=== PATIENT | male | born 1945 | race Caucasian/White ===

== ENCOUNTER 2019-05-18 09:03 | Outpatient (CLI) | payer MEDICARE, SELFPAY ==
[2019-05-18 13:18] LABS: Hematocrit 41.9 % (42.0-52.0); Hemoglobin 13.8 g/dL (14.0-18.0); Mean Corpuscular HGB Conc 32.9 g/dl (32-36); Mean Corpuscular Hemoglobin 31.3 pg (26-34); Mean Platelet Volume 10.5 fl (7.4-10.4); Platelet Count Result 160 k/mm3 (150-375); Red Blood Count 4.41 M/mm3 (4.6-6.20); Red Cell Distribution Width 12.1 % (11.5-14.5); White Blood Count 5.3 K/mm3 (4.5-10.0)
[2019-05-18 13:38] LABS: Creatinine Urine 197.4 mg/dL
[2019-05-18 13:39] LABS: Alanine Aminotransferase 21 U/L (4-50); Albumin Level 4.3 g/dL (3.5-5.1); Alkaline Phosphatase 45 U/L (38-126); Aspartate Amino Transferase 31 U/L (17-59); Bilirubin,Total 1.1 mg/dL (0.2-1.3); Blood Urea Nitrogen 35 mg/dL (9-20); Calcium 9.3 mg/dL (8.4-10.2); Carbon Dioxide 23 mmol/L (22-30); Chloride 102 mmol/L (98-107); Cholesterol 156 mg/dL (0-200); Estimated Glomerular Filt Rate 42; Glucose 124 mg/dL (75-110); HDL Direct 40 mg/dL; Potassium 4.8 mmol/L (3.4-5.0); Sodium 140 mmol/L (137-145); Triglycerides 131 mg/dL (<150)
[2019-05-18 13:43] LABS: MALB Creatinine Ratio 10.3 mg/g (0-30); Microalbumin Urine Random 20.3 mg/L (0-16.7)
[2019-05-18 13:47] LABS: Hemoglobin A1C 6.2 % (<5.7)
[2019-05-18 13:50] LABS: Add Urine Microscopic? NO; Appearance Urine Clear (Clear); Bilirubin Urine Negative (Negative); Blood Urine Negative (Negative); Color Urine Yellow (Yellow); Glucose Urine UA Negative (Negative); Ketones Urine Negative (Negative); LDL Cholesterol Direct 88 mg/dL; Leukocyte Esterase Ur Negative LEU/UL (NEGATIVE); Nitrate Urine Negative (Negative); Protein Urine Negative (Negative); Specific Grav Ur 1.024 (1.001-1.035); Urobilinogen Urine Negative mg/dL (<2.0)
== END 2019-05-18 09:04 | disposition home or self-care (01) ==
PROVIDERS: PCP Family Medicine; Visit Provider Family Medicine
DX: I12.9 Hypertensive chronic kidney disease with stage 1 through stage 4 chronic kidney disease, or unspecified chronic kidney disease (principal); N18.3 Chronic kidney disease, stage 3 (moderate); E11.9 Type 2 diabetes mellitus without complications; E78.2 Mixed hyperlipidemia
CPT/HCPCS: 36415; 80053; 80061; 81003; 82043; 83036; 84443; 85027

== ENCOUNTER 2019-05-29 07:50 | Outpatient (CLI) | payer MEDICARE, SELFPAY ==
--- NOTE | ~2019-05-29 | US_ITS ---
EXAMINATION: US aorta DATE: 05/29/2019 08:42 INDICATION: Encounter for screening for cardiovascular disorders. TECHNIQUE: Grayscale, color Doppler, and pulsed Doppler images of the aorta and common iliac arteries were obtained. COMPARISON: CT abdomen and pelvis 02/26/2015 FINDINGS: The aorta is normal in caliber and demonstrates atherosclerosis. The right common iliac artery is nor mal in caliber. The left common iliac artery is normal in caliber. IMPRESSION: 1. Aortic atherosclerosis. No aneurysm. Reviewed, dictated and finalized at location A. CHER
== END 2019-05-29 07:51 | disposition home or self-care (01) ==
LOC: ANHIMG 07:51
PROVIDERS: PCP Family Medicine; Visit Provider Family Medicine
DX: Z13.6 Encounter for screening for cardiovascular disorders (principal); I70.0 Atherosclerosis of aorta
CPT/HCPCS: 76775

== ENCOUNTER → 2019-12-08 09:35 | Outpatient (CLI) | payer MEDICARE, SELFPAY ==
--- NOTE | ~2019-12-08 | CT_ITS ---
EXAMINATION: CT sinus wo con DATE: 12/08/2019 09:50 INDICATION: Chronic sinusitis TECHNIQUE: Computed tomography (CT) of the paranasal sinuses was performed without intravenous contra st. The dose-length product (DLP) was 293.28 mGy-cm. Iterative reconstruction was used. COMPARISON: None FINDINGS: The right frontal sinus is not pneumatized in the left frontal sinus is hypoplastic. There is otherwise normal development and pneumatization of the paranasal sinuses. There is mild mucosal th ickening of th maxillary sinuses. Also seen is a 6 mm polyp or mucous retention cysts involving the l ateral wall of the left maxillary sinus. The nasal septum. There are surgical changes in the medial w all of the right maxillary sinus. The frontal, sphenoid, ethmoid sinuses are clear. The bilateral ost iomeatal complexes are patent. Visualized soft tissues are unremarkable. IMPRESSION: 1. Mild mucosal thickening of the maxillary sinuses and a 6 mm polyp or mucous retention cyst of the left maxillary sinus. Reviewed, dictated and finalized at location A.
== END ==
PROVIDERS: PCP Family Medicine; Visit Provider Otolaryngology
DX: J32.9 Chronic sinusitis, unspecified (principal)
CPT/HCPCS: 70486

== ENCOUNTER 2020-01-02 00:55 | Outpatient (CLI) | payer MEDICARE, SELFPAY ==
[2020-01-02 17:48] LABS: SARS-CoV-2 RNA PCR Negative
== END 2020-01-02 00:56 | disposition home or self-care (01) ==
LOC: ANHCOVIDDT 00:57
PROVIDERS: PCP Family Medicine; Visit Provider Internal Medicine Gastroenterology
DX: Z01.812 Encounter for preprocedural laboratory examination (principal); Z20.828 Contact with and (suspected) exposure to other viral communicable diseases
CPT/HCPCS: 87635; C9803; U0003

== ENCOUNTER 2020-01-05 02:22 | Day surgery (SDC) | payer MEDICARE, SELFPAY ==
[2020-01-01 10:58] VITALS: BMI 29.2
[2020-01-05 06:20] VITALS: BP 125/75; PULSE 68; RESP 16; TEMP 36.3; O2SAT 98; BMI 29.7
[2020-01-05] MEDS: LACTATED RINGERS 1,000 ML 150 ML IV CONT (06:43)
[2020-01-05 06:47] LABS: Glucose Point of Care 134 (65-105)
--- NOTE | 2020-01-05 07:06 | WPDANESEPPF ---
Anes - Initial Pre Proc Eval Procedure: Operation Date: 01/05/20 07:30 Proposed Procedures p Esophagogastroduodenoscopy - Jesus Jones MD Date/Time: 01/05/20 07:06 Surgeon: Jesus Jones MD Pre Op Diagnosis: Dysphagia, GERD Patient Data Age: 74 Gender: M Height: 6 ft Weight: 99.5 kg Last Vital Signs Temp 97.4 F L 01/05/20 06:20 Pulse 68 01/05/20 06:20 Resp 16 01/05/20 06:20 BP 125/75 01/05/20 06:20 Pulse Ox 98 01/05/20 06:20 Allergies Allergy/AdvReac Type Severity Reaction Status Date / Time No Known Allergies Allergy Verified 01/05/20 06:19 Home Medications Medication Instructions Recorded Confirmed Type olmesartan 20 mg tablet 20 mg PO DAILY #90 tablet 05/25/19 01/01/20 Rx rosuvastatin 5 mg tablet 5 mg PO DAILY #90 tablet 05/25/19 01/01/20 Rx omeprazole 40 mg capsule,delayed 40 mg PO DAILY #90 cap 11/24/19 01/01/20 Rx release blood sugar diagnostic #100 each 12/15/19 Rx lancets 33 gauge #100 each 12/15/19 Rx ipratropium bromide 2 spray INTRANASAL BID 01/01/20 01/01/20 History Laboratory Tests 01/05/20 06:41 POC Capillary Glucose 134 mg/dl H mg/dl (65-105) Patient hx anesthesia problems: none Family hx anesthesia problems: none PMFSH Past Medical History Medical History (Updated 01/05/20 @ 07:06 by Michael Restrepo MD) Diabetes mellitus with kidney complication GERD (gastroesophageal reflux disease) HLD (hyperlipidemia) Hypertension Surgical History Surgical History History of decompression of ulnar nerve History of hemorrhoidectomy History of nasal septoplasty History of shoulder replacement right Status post carpal tunnel release Social History Social History Smoking packs per day: 1 Smoking cigarettes per day: 20.0 Years smoked: 22 Smoking pack-years: 22.00 Smoking status: Former smoker Tobacco type: cigarettes and cigars Second hand tobacco smoke exposure: No Smoking end date: 04/08/71 Alcohol intake: current Drinks per week: 7 Substance use: never Substance use type: does not use Living arrangements: with family Gender identity (if verbalized by the patient): Male Sexual Orientation (if Verbalized by the Patient): Straight or Heterosexual Spiritual care concerns: No Anes - Eval Final PreProcedure Day of Procedure 01/05/20 07:06 Patient weight: overweight Heart: regular rate and rhythm Lungs: clear to auscultation Airway: Mallampati scale class II Neurological: alert and oriented Last oral intake: >/= 8 hours ASA classification: III Emergent: no Anesthetic plan: proceed Anesthesia type and monitoring: general GIVS and standard monitoring Informed Consent: The patient's anesthetic plan and its attendant risks and benefits were discussed with the patient/family/POA. Questions were solicited and answers provided to the satisfaction of the patient/family/POA.
[2020-01-05] MEDS: BENZOCAINE (*SP) 60 ML SPRAY CAN (HURRICAINE) 1 SPRAY MUCOUS MEM (07:28)
--- NOTE | 2020-01-05 07:35 | WPDGICN ---
Assessment and Plan Additional Plan Patient has chronic GE reflux disease. Plan is for EGD to assess more thoroughly. Recent exacerbation of symptoms currently slowly improving. Plan is for long-term PPI therapy further recommendations may be given after EGD. GI Consult Note Consult date/time: 01/05/20 07:35 HPI: [place] Jr. is a 74 year old male seen in evaluation at the request of Dr Dickens.Patient has a history of acid reflux for many years. He presents today for evaluation by EGD. He recently has had difficulty swallowing some fullness in his throat. This is improved on taking proton pump inhibitor but also upon taking an inhaler. his last EGD before today was more than 10 years ago. Family history is noncontributory. Patient denies any weight loss or bleeding. Patient has a distant history of an hyperplastic colon polyp 5 years ago. Surveillance colonoscopy at 10 year intervals has been suggested Review of Systems Review of Systems: All systems reviewed & are unremarkable except as noted in HPI and below PMFSH Past Medical History Medical History Diabetes mellitus with kidney complication GERD (gastroesophageal reflux disease) HLD (hyperlipidemia) Hypertension Surgical History Surgical History History of decompression of ulnar nerve History of hemorrhoidectomy History of nasal septoplasty History of shoulder replacement right Status post carpal tunnel release Family History Family History Father Family history of cardiovascular disease Sibling Family history of cardiovascular disease Mother Family history of malignant neoplasm Social History Social History Smoking packs per day: 1 Smoking cigarettes per day: 20.0 Years smoked: 22 Smoking pack-years: 22.00 Smoking status: Former smoker Tobacco type: cigarettes and cigars Second hand tobacco smoke exposure: No Smoking end date: 04/08/71 Alcohol intake: current Drinks per week: 7 Substance use: never Substance use type: does not use Living arrangements: with family Gender identity (if verbalized by the patient): Male Sexual Orientation (if Verbalized by the Patient): Straight or Heterosexual Spiritual care concerns: No Meds Home Medications and Allergies Home Medications Medication Instructions Recorded Confirmed Type olmesartan 20 mg tablet 20 mg PO DAILY #90 tablet 02/17/20 09/25/20 Rx rosuvastatin 5 mg tablet 5 mg PO DAILY #90 tablet 05/25/19 01/01/20 Rx omeprazole 40 mg capsule,delayed 40 mg PO DAILY #90 cap 11/24/19 01/01/20 Rx release blood sugar diagnostic #100 each 12/15/19 Rx lancets 33 gauge #100 each 12/15/19 Rx ipratropium bromide 2 spray INTRANASAL BID 01/01/20 01/01/20 History Allergies Allergy/AdvReac Type Severity Reaction Status Date / Time No Known Allergies Allergy Verified 01/05/20 06:19 Vital Signs Vital Signs - 24 hr 01/05/20 06:20 Temperature 97.4 F L Pulse Rate 68 Respiratory Rate 16 Blood Pressure 125/75 Pulse Oximetry 98 Exam Narrative: Exam Narrative: Physical exam reveals patient to be alert. Vital signs stable. HEENT exam unremarkable. Patient is anicteric. Lungs are clear to auscultation and percussion. Heart is without murmur or extra sounds. Abdominal exam bowel sounds are present soft nontender with no organomegaly.
[2020-01-05 07:37] VITALS: BP 109/68; PULSE 66; RESP 17; O2SAT 95
[2020-01-05 07:47] VITALS: BP 108/67; PULSE 64; RESP 16; O2SAT 94
[2020-01-05 07:57] VITALS: BP 110/63; PULSE 66; RESP 19; O2SAT 95
== END 2020-01-05 08:10 | disposition home or self-care (01) ==
PROVIDERS: PCP Family Medicine; Visit Provider Internal Medicine Gastroenterology
PROC: 0DJ08ZZ Inspection of Upper Intestinal Tract, Via Natural or Artificial Opening Endoscopic (ICD-10-PCS; CPT 43235; principal; 2020-01-05 07:30)
DX: K22.70 Barrett's esophagus without dysplasia (principal); K21.9 Gastro-esophageal reflux disease without esophagitis; Z86.010 Personal history of colon polyps; E11.29 Type 2 diabetes mellitus with other diabetic kidney complication; E78.5 Hyperlipidemia, unspecified; I10 Essential (primary) hypertension; Z87.891 Personal history of nicotine dependence
CPT/HCPCS: 43239; 88305; 88313; J2704; J7120

== ENCOUNTER → 2021-01-30 14:01 | Outpatient (CLI) | payer MEDICARE, SELFPAY ==
--- NOTE | ~2021-01-30 | XR_ITS ---
EXAMINATION: XR lumbar spine 2-3V DATE: 01/30/2021 14:33 INDICATION: Low back pain TECHNIQUE: Anteroposterior and lateral views of the lumbar spine, and cone-down lateral view of the l umbosacral junction were obtained. COMPARISON: CT, 02/26/2015 FINDINGS: There are 27 degrees of lumbar levoscoliosis. Fracture. There are 2 mm of retrolisthesis of L2 on L3 and 2 mm of anterolisthesis of L4 on L5. The vertebral body heights are maintained. There i s severe loss of intervertebral disc space height at L2-3 and moderate loss of disc space height at L 1-2, L3-4, and L5-S1. 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 The bowel gas p attern is normal. IMPRESSION: 1. Severe lumbar spondylosis at L2-3 and moderate lumbar spondylosis elsewhere without acute osseous abnormality. Reviewed, dictated and finalized at location A.
== END ==
PROVIDERS: PCP Family Medicine; Visit Provider Family Medicine
DX: M47.896 Other spondylosis, lumbar region (principal)
CPT/HCPCS: 72100

== ENCOUNTER → 2021-05-30 15:45 | Outpatient (CLI) | payer MEDICARE, SELFPAY ==
--- NOTE | ~2021-05-30 | CT_ITS ---
EXAMINATION: CT sinus wo con DATE: 05/30/2021 15:59 INDICATION: Postnasal drip TECHNIQUE: Computed tomography (CT) of the paranasal sinuses was performed without intravenous contra st. The dose-length product was 300.36 mGy-cm. Automated exposure control and iterative reconstructio n technique were employed. COMPARISON: CT dated 12/08/2019 FINDINGS: There is mild mucosal thickening of the maxillary, ethmoid sinuses. Mastoids are pneumatize d. Mastoids are pneumatized. Leftward nasal septal deviation. Ostiomeatal units are patent. IMPRESSION: 1. Mild sinus disease. Reviewed, dictated and finalized at location B. KER OUT IMPRESSION: 1. Mild sinus disease.
== END ==
PROVIDERS: Visit Provider Otolaryngology
DX: J32.9 Chronic sinusitis, unspecified (principal); J34.2 Deviated nasal septum; R09.82 Postnasal drip; R44.8 Other symptoms and signs involving general sensations and perceptions
CPT/HCPCS: 70486

== ENCOUNTER 2021-09-15 13:06 | Outpatient (CLI) | payer MEDICARE, SELFPAY ==
--- NOTE | ~2021-09-15 | US_ITS ---
US soft tissue groin RT 09/15/2021 14:01 Indication: Right groin/inguinal pain which increases with exertion Procedure: High-resolution Limited ultrasound of the right groin Comparison: No prior studies for comparison. Findings: In the area of pain there is an oval hypoechoic mass measuring 11 x 5 x 6 mm with slightly irregular margins. There is a second 1 cm mass with echogenic hilum in the area of concern, consisten t with a lymph node. No suspicious fluid collections. No abnormal vascularity. No evidence for hernia . Impression: 1: 2 discrete masses in the area of clinical concern, likely reactive lymph nodes. Recommend follow-u p examination to assess for resolution as clinically indicated. Reviewed, dictated and finalized at location A. Impression: 1: 2 discrete masses in the area of clinical concern, likely reactive lymph nod es. Recommend follow-up examination to assess for resolution as clinically bernardo cated.
== END 2021-09-15 13:07 | disposition home or self-care (01) ==
PROVIDERS: PCP Family Medicine; Visit Provider Physician Assistant
DX: R10.31 Right lower quadrant pain (principal); S76.811A Strain of other specified muscles, fascia and tendons at thigh level, right thigh, initial encounter; X58.XXXA Exposure to other specified factors, initial encounter
CPT/HCPCS: 76882

== ENCOUNTER 2021-11-02 08:21 | Outpatient (CLI) | payer MEDICARE, SELFPAY ==
--- NOTE | 2021-11-02 13:09 | WPDPFTINT ---
PFT Procedure Performed PFT Procedure Performed Spirometry with Pre/Post Bronchodilator Plethysmography (Lung Vol) Diffusing Cap (DLCO) Flow Vol Loop PFT Interpretation This is a pulmonary function test with pre and post-bronchodilator spirometry, plethysmography and diffusing capacity. The test was performed and results interpreted in accordance with the 2019 and 2005 ATS/ERS Task Force guidelines respectively using the Global Lung Function Initiative-2012 reference equations. Patient demonstrated good effort and cooperation. Reproducibility criteria were met. The quality of the pre bronchodilator spirometry maneuver was Grade A and post bronchodilator spirometry maneuver was Grade A. Findings: Spirometry: The contour the inspiratory and expiratory flow tracing are normal. The pre bronchodilator FVC is 4.66 L, 109% predicted. The pre bronchodilator FEV1 is 3.39 L, 107% predicted. The pre bronchodilator FEV1: FVC ratio 73%. The post bronchodilator FVC is 4.62 L, representing 1% decrease. The post bronchodilator FEV1 is 3.55 L, representing a 5% increase. the post bronchodilator FEV1: FVC ratio 77%. Plethysmography: The total lung capacity is 7.32 L, 98% predicted. The functional residual capacity is 3.69 L, 91% predicted. The residual volume is 2.46 L, 91% predicted. Diffusing capacity: The diffusing capacity unadjusted for hemoglobin and carboxyhemoglobin is 16.6, 66% predicted. The diffusing capacity adjusted for alveolar volume is 2.90, 81% predicted. Impression: The spirometry is normal without evidence of an obstructive abnormality. There is no significant improvement after inhaling a single dose of albuterol. The lung volumes are normal. The diffusing capacity unadjusted for hemoglobin and carboxyhemoglobin is mildly decreased and normalizes when adjusted for alveolar volume. There are no prior studies for comparison
== END 2021-11-02 08:22 | disposition home or self-care (01) ==
LOC: ANHPFT 08:25
PROVIDERS: PCP Family Medicine; Visit Provider Internal Medicine Pulmonary Disease
DX: R06.00 Dyspnea, unspecified (principal)
CPT/HCPCS: 94060; 94726; 94729

== ENCOUNTER 2021-11-12 08:10 | Emergency (ER) | payer MEDICARE, SELFPAY ==
--- NOTE | ~2021-11-12 | XR_ITS ---
XR abdomen/kub 1V DATE: 11/12/2021 09:53 INDICATION: 4 mm distal right ureteral calculus TECHNIQUE: AP projection, 2 views COMPARISON: 11/12/2021 CT abdomen pelvis FINDINGS: There is a prominent amount of fecal material in the colon overlying the pelvic area which may obscure a very faintly calcified ureteral calculus. No obvious calcified ureteral calculus is det ected. The psoas shadows are intact. No visceromegaly is evident. No bowel obstruction. Rotatory levoscoliosis and multilevel degenerative disc disease of the lumbar spine. IMPRESSION: No definite radiographic evidence of the 4 mm distal right ureteral calculus noted on the current CT abdomen pelvis Reviewed, dictated and finalized at Location A. Reviewed, dictated and finalized at location A.
--- NOTE | ~2021-11-12 | CT_ITS ---
EXAMINATION: CT abdomen pelvis wo con DATE: 11/12/2021 09:07 INDICATION: Right flank pain. History kidney stones. TECHNIQUE: Computed tomography (CT) of the abdomen and pelvis was performed without intravenous contr ast. Automated exposure control and iterative reconstruction technique were employed. Exam dose: 282 .75 mGy-cm total exam DLP. COMPARISON: 02/26/2015 CT abdomen pelvis FINDINGS: 02/26/[address] abdomen pelvis Minimal discoid atelectasis or scarring at the anterior basilar left lower lobe. No infiltrate or con solidation at the lung bases. Normal heart size. No pericardial or pleural effusion. Small sliding hiatal hernia. The liver, gallbladder, bile ducts, pancreas, pancreatic duct, and adrenal glands are unremarkable. No renal mass lesion is evident. Subtle nonobstructing small upper pole right renal calculus. There is a 4 mm distal right ureteral calculus with mild right hydroureteronephrosis. Moderate thickening of the urinary bladder wall which may be due to underdistention. No severe prosta te enlargement is noted. There is atherosclerotic calcification of the abdominal aorta. No intraperitoneal or retroperitoneal or pelvic mass lesion or adenopathy or ascites. Numerous diverticula of the left colon, primarily sigmoid area; no CT evidence of diverticulitis. No bowel obstruction, bowel wall thickening, pneumatosis or intraperitoneal free air. Normal appendix Degenerative spurring of the lower thoracic spine. Dextroscoliosis of the lower thoracic and lumbar spine. Multilevel degenerative disc disease of lumbar spine, particularly severe at L2-3 and L5-S1, moderate ly severe L1-2 and L3-4. There is associated mild retrolisthesis at L2-3. There is prominent degenera tive change at the apophyseal joints with associated grade 1 anterolisthesis at L4-5. IMPRESSION: 4 mm distal right ureteral calculus with mild right hydroureteronephrosis Diverticulosis of left colon; no CT evidence of diverticulitis Normal appendix Reviewed, dictated and finalized at [facility]. Reviewed, dictated and finalized at location A. IMPRESSION: 4 mm distal right ureteral calculus with mild right hydroureterone phrosis Diverticulosis of left colon; no CT evidence of diverticulitis Normal appendix
[2021-11-12 08:16] VITALS: BP 135/68; PULSE 74; RESP 16; TEMP 36.3; O2SAT 99
[2021-11-12 08:19] VITALS: BP 145/84; PULSE 64; RESP 16; O2SAT 94
[2021-11-12] MEDS: HYDROmorphone HCL INJ (*CRX) 1 MG/ML SYR 0.5 MG IV PUSH (08:42)
[2021-11-12] MEDS: ONDANSETRON INJ 4 MG/2 ML VIAL IV PUSH (08:42)
[2021-11-12 08:45] LABS: Basophils Absolute Auto 0.1 K/mm3 (0.0-0.1); Basophils Percent Auto 0.8 % (0.2-1.2); Eosinophils Absolute Auto 0.3 K/mm3 (0-0.3); Eosinophils Percent Auto 4.4 % (0-4.4); Hematocrit 38.9 % (42.0-52.0); Hemoglobin 12.8 g/dL (14.0-18.0); Immature Granulocyte Absolute 0.03 K/mm3 (0.00-0.031); Immature Granulocyte Percent A 0.4 % (0-0.5); Lymphocytes Absolute Auto 2.48 K/mm3 (0.9-3.2); Lymphocytes Percent Auto 33.3 % (18.3-44.2); Mean Corpuscular HGB Conc 32.9 g/dl (32-36); Mean Corpuscular Hemoglobin 30.9 pg (26-34); Monocytes Absolute Auto 0.8 K/mm3 (0.1-0.6); Monocytes Percent Auto 10.7 % (2.6-8.5); Neutrophils Absolute Auto 3.8 K/mm3 (1.3-6.7); Neutrophils Percent Auto 50.4 % (45.5-73.1); Platelet Count Result 166 k/mm3 (150-375); Red Blood Count 4.14 M/mm3 (4.6-6.20); Red Cell Distribution Width 12.6 % (11.5-14.5); White Blood Count 7.5 K/mm3 (4.5-10.0)
--- NOTE | 2021-11-12 08:56 | ED.GENADULT ---
HPI - General Adult General Chief complaint: Back Pain/Injury Stated complaint: back pain Time Seen by Provider: 11/12/21 08:27 Source: patient Mode of arrival: ambulatory Limitations: no limitations History of Present Illness HPI narrative: Patient is a 76 y/o male who presents to the ED with c/o R flank pain. Patient reports he developed pain around 8:30 AM this morning. He states pain came on suddenly and was severe. Pain does not radiate. History of kidney stones and states pain feels similar. Also reports cold sweats, nausea, difficulty urinating. He did urinate once this morning prior to when the pain began but it was a small amount. Denies any hematuria. Denies vomiting, fever, abdominal pain. Related Data Allergies Allergy/AdvReac Type Severity Reaction Status Date / Time No Known Allergies Allergy Verified 10/04/21 12:53 Review of Systems Review of Systems: CONSTITUTIONAL: Reports cold sweats. Denies fever. CARDIOVASCULAR: Denies chest pain. RESPIRATORY: Denies dyspnea. GASTROINTESTINAL: Reports nausea. Denies abdominal pain, vomiting, or diarrhea. GENITOURINARY: Reports difficulty urinating. Denies hematuria. MUSCULOSKELETAL: Reports R flank pain. All systems reviewed & are unremarkable except as noted in HPI and below PMFSH Past Medical History Medical History Diabetes mellitus with kidney complication GERD (gastroesophageal reflux disease) HLD (hyperlipidemia) Hypertension Surgical History Surgical History History of decompression of ulnar nerve History of hemorrhoidectomy History of nasal septoplasty History of shoulder replacement right Status post carpal tunnel release Family History Family History Father Family history of cardiovascular disease Sibling Family history of cardiovascular disease Mother Family history of malignant neoplasm Social History Social History Smoking packs per day: 1 Smoking cigarettes per day: 20.0 Years smoked: 22 Smoking pack-years: 22.00 Smoking status: Former smoker Tobacco type: cigarettes and cigars Second hand tobacco smoke exposure: Yes Smoking end date: 04/08/71 Alcohol intake: current Drinks per week: 4 Substance use: never Substance use type: does not use Gender identity (if verbalized by the patient): Male Sexual Orientation (if Verbalized by the Patient): Straight or Heterosexual Spiritual care concerns: No Exam Narrative: GENERAL: Well appearing, well-nourished, non-toxic, in no acute distress. HEAD: Normocephalic, atraumatic. NECK: Supple. No adenopathy, no masses. RESPIRATORY: Airway patent, respirations nonlabored. Clear to auscultation bilaterally, no rales, rhonchi, wheezing. CARDIOVASCULAR: Regular rate and rhythm without murmurs, rubs, or gallops. Peripheral pulses 2+ and equal bilaterally. ABDOMINAL: Soft, no appreciable tenderness to palpation, nondistended, no hepatosplenomegaly. Normoactive BS. No significant CVA tenderness to percussion. MUSCULOSKELETAL: Moves all extremities. Strength/ROM intact without gross deformities. Mild TTP to R lumbar region. SKIN: Warm, dry, normal color. No rashes. NEURO: A&O X3. Speech clear. Cranial nerves II-XII grossly intact. Steady gait. No ataxic movements. PSYCHIATRIC: Appropriate mood and affect. Normal interaction. Course Vital Signs Vital signs: Vital Signs Temperature 97.4 F L 11/12/21 08:16 Pulse Rate 74 11/12/21 08:16 Respiratory Rate 16 11/12/21 08:16 Blood Pressure 135/68 11/12/21 08:16 Pulse Oximetry 99 11/12/21 08:16 Oxygen Delivery Room Air 11/12/21 08:16 Temperature 97.4 F L 11/12/21 08:16 Pulse Rate 79 11/12/21 12:16 Respiratory Rate 18 11/12/21 12:16 Blood Pressure 125/74 11/12/21 12:16 Pulse Oximet
[2021-11-12 09:01] LABS: Alanine Aminotransferase 20 U/L (6-50); Albumin Level 4.2 g/dL (3.5-5.1); Alkaline Phosphatase 53 U/L (38-126); Anion Gap 10 mmol/L (8-16); Aspartate Amino Transferase 30 U/L (17-59); Bilirubin,Total 0.8 mg/dL (0.2-1.3); Blood Urea Nitrogen 37 mg/dL (9-20); Calcium 8.7 mg/dL (8.4-10.2); Carbon Dioxide 22 mmol/L (22-30); Chloride 107 mmol/L (98-107); Estimated CRCL calculation 36 ml/min; Estimated Glomerular Filt Rate 39; Glucose 177 mg/dL (65-110); Potassium 4.8 mmol/L (3.4-5.0); Sodium 139 mmol/L (137-145)
[2021-11-12] MEDS: SODIUM CHLORIDE 0.9% IV 1,000 ML 999 ML IV CONT (09:19)
[2021-11-12 09:24] LABS: Appearance Urine Clear (Clear); Bilirubin Urine Negative (Negative); Blood Urine Negative (Negative); Color Urine Yellow (Yellow); Glucose Urine UA Trace mg/dL (Negative); Ketones Urine Negative (Negative); Leukocyte Esterase Ur Negative LEU/UL (Negative); Nitrate Urine Negative (Negative); Protein Urine Negative (Negative); Specific Grav Ur >= 1.030 (1.001-1.035); Urobilinogen Urine 0.2 mg/dL (<2.0)
[2021-11-12 09:32] LABS: Mucus Urine Rare /lpf; RBC Urine 0-2 /hpf (0-2); WBC Urine 0-3 /hpf
[2021-11-12 09:36] LABS: Add Urine Microscopic? YES
[2021-11-12] MEDS: KETOROLAC 30 MG/ML VIAL (*BKC) IV PUSH (10:02)
[2021-11-12] MEDS: HYDROcodone/acetaminophen (*CRX) 5-325 MG TABLET 1 TAB PO (12:11)
[2021-11-12 12:16] VITALS: BP 125/74; PULSE 79; RESP 18; O2SAT 99
== END 2021-11-12 12:18 | disposition home or self-care (01) ==
PROVIDERS: Emergency Provider Emergency Medicine; PCP Family Medicine
DX: N13.2 Hydronephrosis with renal and ureteral calculous obstruction (principal); E11.29 Type 2 diabetes mellitus with other diabetic kidney complication; N28.9 Disorder of kidney and ureter, unspecified; E78.5 Hyperlipidemia, unspecified; I10 Essential (primary) hypertension; K21.9 Gastro-esophageal reflux disease without esophagitis; Z96.611 Presence of right artificial shoulder joint; Z87.891 Personal history of nicotine dependence; K57.90 Diverticulosis of intestine, part unspecified, without perforation or abscess without bleeding
CPT/HCPCS: 36415; 74018; 74176; 80053; 81001; 85025; 87086; 96361; 96374; 96375; 99284; A9270; J1170; J1885; J2405; J7030

== ENCOUNTER 2023-09-18 11:50 | Outpatient (CLI) | payer MEDICARE, SELFPAY ==
[2023-09-18 12:22] LABS: Hematocrit 41.2 % (42.0-52.0); Hemoglobin 13.9 g/dL (14.0-18.0); Mean Corpuscular HGB Conc 33.7 g/dl (32-36); Mean Corpuscular Hemoglobin 32.1 pg (26-34); Mean Corpuscular Volume 95.2 fl (80-100); Mean Platelet Volume 9.7 fl (7.4-10.4); Platelet Count Result 174 k/mm3 (150-375); Red Blood Count 4.33 M/mm3 (4.6-6.20); Red Cell Distribution Width 12.4 % (11.5-14.5); White Blood Count 7.4 K/mm3 (4.5-10.0)
[2023-09-18 12:32] LABS: Alanine Aminotransferase 22 U/L (6-50); Albumin Level 4.2 g/dL (3.5-5.1); Alkaline Phosphatase 59 U/L (38-126); Anion Gap 5 mmol/L (4-12); Aspartate Amino Transferase 26 U/L (17-59); Bilirubin,Total 0.9 mg/dL (0.2-1.3); Blood Urea Nitrogen 27 mg/dL (9-20); Calcium 8.8 mg/dL (8.4-10.2); Carbon Dioxide 24 mmol/L (22-30); Chloride 107 mmol/L (98-107); Estimated Glomerular Filt Rate 37; Glucose 164 mg/dL (65-110); Potassium 4.5 mmol/L (3.4-5.0); Sodium 136 mmol/L (137-145)
== END 2023-09-18 11:51 | disposition home or self-care (01) ==
PROVIDERS: PCP Family Medicine; Visit Provider Family Medicine
DX: E11.29 Type 2 diabetes mellitus with other diabetic kidney complication (principal); R53.83 Other fatigue
CPT/HCPCS: 36415; 80053; 85027

== ENCOUNTER 2024-01-16 16:51 | Outpatient (CLI) | payer MEDICARE, SELFPAY ==
[2024-01-16 18:11] LABS: Basophils Percent Auto 0.3 % (0.2-1.2); Eosinophils Percent Auto 0.1 % (0-4.4); Hematocrit 42.9 % (42.0-52.0); Hemoglobin 14.2 g/dL (14.0-18.0); Immature Granulocyte Absolute 0.03 K/mm3 (0.00-0.031); Immature Granulocyte Percent A 0.3 % (0-0.5); Lymphocytes Absolute Auto 0.75 K/mm3 (0.9-3.2); Mean Corpuscular HGB Conc 33.1 g/dl (32-36); Mean Corpuscular Hemoglobin 32.2 pg (26-34); Mean Corpuscular Volume 97.3 fl (80-100); Monocytes Absolute Auto 0.6 K/mm3 (0.1-0.6); Monocytes Percent Auto 6.4 % (2.6-8.5); Neutrophils Absolute Auto 7.9 K/mm3 (1.3-6.7); Neutrophils Percent Auto 84.9 % (45.5-73.1); Platelet Count Result 175 k/mm3 (150-375); Red Blood Count 4.41 M/mm3 (4.6-6.20); Red Cell Distribution Width 12.2 % (11.5-14.5); White Blood Count 9.3 K/mm3 (4.5-10.0)
[2024-01-16 18:22] LABS: Alanine Aminotransferase 22 U/L (6-50); Albumin Level 4.5 g/dL (3.5-5.1); Alkaline Phosphatase 47 U/L (38-126); Anion Gap 9 mmol/L (4-12); Aspartate Amino Transferase 32 U/L (17-59); Bilirubin,Total 1.4 mg/dL (0.2-1.3); Blood Urea Nitrogen 32 mg/dL (9-20); Calcium 8.6 mg/dL (8.4-10.2); Carbon Dioxide 27 mmol/L (22-30); Chloride 99 mmol/L (98-107); Estimated Glomerular Filt Rate 36; Glucose 123 mg/dL (65-110); Potassium 4.8 mmol/L (3.4-5.0); Sodium 135 mmol/L (137-145)
[2024-01-16 18:46] LABS: Influenza A QL RT-PCR Negative (Negative); Influenza B QL RT-PCR Negative (Negative); RSV RNA, RT-PCR Negative (Negative); SARS-CoV-2 RNA PCR Negative (Negative)
== END 2024-01-16 16:52 | disposition home or self-care (01) ==
LOC: ANHLAB 16:55
PROVIDERS: PCP Family Medicine; Visit Provider Physician Assistant
DX: R50.9 Fever, unspecified (principal); R19.7 Diarrhea, unspecified; R11.0 Nausea
CPT/HCPCS: 36415; 80053; 85025; 87637

== ENCOUNTER 2024-11-02 13:33 | Outpatient (CLI) | payer MEDICARE, SELFPAY ==
--- NOTE | ~2024-11-02 | XR_ITS ---
CHEST RADIOGRAPH, PA AND LATERAL CLINICAL HISTORY: R05.9 - Cough, unspecified . COMPARISON: 01/18/2015 TECHNIQUE: PA and lateral views of the chest. FINDINGS The cardiomediastinal silhouette is unremarkable. The lungs are clear. IMPRESSION: No focal infiltrate or effusion. Reviewed, dictated and finalized at location A.
--- OUTSIDE RECORDS SUMMARY | 2024-11-02 13:39 | XMS_ITS | Clinical Summary ---
Author Organization [facility] Address [address] [place] [id number] Phone Care Team Providers Care Surgical Tech Name Role Phone Unavailable Primary Care Provider Unavailabl e Medications olmesartan (BENICAR) 20 MG tablet 1 tab/cap qday 10/02/2011 Active rosuvastatin (CRESTOR) 5 MG tablet 1 tab qday 10/02/2011 Active aspirin (ST KARTHIK) 81 MG EC tablet 1 tab/cap qday 10/02/2011 Active omeprazole (PriLOSEC) [address] capsule 1 tab qday 10/02/2011 Active traMADol (ULTRAM) 50 MG tablet 1 tab tid PRN 10/02/2011 Active Active Problems Problem Noted Date Diagnosed Date Other hyperlipidemia 02/27/2016 Overview (06/21/2018): Converted unresolved ICD9, potential mismatch. Chronic kidney disease, stage 3 (moderate) 02/15 Hypertensive chronic kidney disease with stage 1 through stage 4 chronic kidney disease, or unspecified chronic kidney disease 02/15/2015 Stage 1 chronic kidney disease 09/25/2011 Essential (primary) hypertension 09/25/2011 Type 2 diabetes mellitus without complication Immunizations Immunization Administration Dates Next Due Influenza TIV (IM) 02/27/2016,02/28/2015, 014 Pneumococcal Conjugate 13-Valent 02/27/2016 Family History Medical History Relation Comments Coronary arteriosclerosis Father Heart disease Father Malignant neoplastic disease Mother Heart disease Sibling Kidney disease Neg Hx Kidney stone Neg Hx Relation Status Comments Father Mother Sibling Social History Tobacco Use Types Packs/Day Years Used Date Smoking Tobacco: Never Alcohol Use Standard Drinks/Week Comments Yes 0 (1 standard drink = 0.6 oz pure alcohol) Alcoholic Drinks/day: once a day Sex and Gender Information Value Date Recorded Sex Assigned at Not on file Legal Sex Male 10:00 AM MST Gender Identity Not on file Sexual Orientation Not on file Last Filed Vital Signs Vital Sign Reading Time Taken Comments Blood Pressure 134/74 02/24/2018 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 Pulse 88 10/03/2011 12:01 AM CDT Temperature 36.5 C (97.7 F) 02/24/2018 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
--- OUTSIDE RECORDS SUMMARY | 2024-11-02 13:39 | XMS_ITS | Data Portability ---
Author Organization [place] - .[facility], [employer] [place] Address [address] [place] [id number] Assessment No assessment recorded. Plan of Treatment Reminders Order Date Submit Date Provider Last Modified By Organization Details Last Modified Time Details Appointments None recorded. Lab None recorded. Referral None recorded. Procedures None recorded. Surgeries None recorded. Imaging None recorded. Medication Orders benzonatate 200 mg capsule 2021 022 [email or web address] 1 [id number], [address] [place], [address], 21:05:42 doxycycline monohydrate 100 mg capsule 2021 022 [email or web address] 1 [facility], [address] [place], [address], 21:05:42 Patient TargetsNo targets recorded. Patient Instructions Encounter Date Encounter Id Patient Instructions Last Modified By Organization Details Last Modified Time 01/04/2022 [id number] A healthy lifestyle: care instructions Not available 01/04/2022 21:05:42 sore throat: car e instructions Not available 01/04/2022 21:05:42 Thank you for visiting [employer]There are two ways to view your lab results: : 1. The [employer] blayne is available to all patients 18 and older in the [employer] Store and [employer] Play. First-time blayne users will need to create an account; please note you ll need to select a login and password for the blayne versus just using your patient portal login credentials. Your lab results will be posted to the [employer] blayne as soon as they re available. 2. Via email , as soon as lab results are available. If you don t receive an email within the estimated time frame, give our Aftercare team a call at [phone]. Cough Your Care Instructions: A cough is your body's response to something that bothers your throat or airways. Many things can cause a cough. You might cough because of a cold or the flu, bronchitis, or asthma. Smoking, postnasal drip, allergies, and stomach acid that backs up into your throat also can cause coughs. A cough is a symptom, not a disease. Most coughs stop when the cause, such as a cold, goes away. You can take a few steps at home to cough less and feel better. Follow-up care is a franklin part of your treatment and safety. Be sure to make and go to all appointments, and call your doctor if you are having problems. It's also a good idea to know your test results and keep a list of the medicines you take. How can you care for yourself at home? Drink lots of water and other fluids. This helps thin the mucus and soothes a dry or sore throat. Honey or lemon juice in hot water or tea may ease a dry cough. Take cough medicine as directed by your doctor. Prop up your head on pillows to help you breathe and ease a dry cough. Try cough drops to soothe a dry or sore throat. Cough drops don't stop a cough. Medicine-flavored cough drops are no better than candy-flavored drops or hard candy. Do not smoke. Avoid secondhand smoke. If you need help quitting, talk to your doctor about stop-smoking programs and medicines. These can increase your chances of quitting for good. When should you call for help? Call 911 anytime you think you may need emergency care. For example, call if: You have severe trouble breathing. Call your doctor now or seek immediate medical care if: You cough up blood. You have new or worse trouble breathing. You have a new or higher fever. You have a new rash. Watch closely for changes in your health, and be sure to contact your doctor if: You cough more deeply or more often, especially if you notice more mucus or a change in the color of your mucus. You have new symptoms, such as a sore throat, an earache, or sinus pain. You do not get better as expected. [email or web address] Not available 01/04/2022 10:15:47 Reason for Referral None Reported. Problems Name Problem SNOMED Code Status Onset Date Resolution Date Notes Provider Name and Address Organization Details Recorded Time Hypercholester olemia 30816621 Active 2021 KEVYN Hennessy - .[facility] 2 09:59:18 Hypertensive disorder 85994349 Active 2021 KEVYN Hennessy - .[facility] 2 09:59:22 Acid reflux 247699311 Active 2021 KEVYN Hennessy - .[facility] 2 09:59:31 Problem Notes None recorded. Medical Equipment None Reported. Medications Name Sig Start Date Stop Date Status Note LastModified by Organization Details LastModified Time benzonatate 200 mg capsule Take 1 capsule 3 times a day by oral route as needed for 7 days. 2021 active Not Available Not Available Not Avai lable hydrocodone 5 mg-acetamin ophen 325 mg tablet TAKE 1 TABLET BY MOUTH EVERY 6 HOURS NEEDED FOR PAIN 01/04 completed Not Available Not Available Not Available omeprazole 40 mg capsule,del ayed release TAKE 1 CAPSULE BY MOUTH DAILY active Not Available Not Available No t Available tramadol 50 mg tablet TAKE 1 TABLET BY MOUTH EVERY 12 HOURS NEEDED FOR PAIN active Not Available Not Available No t Available ketorolac 10 mg tablet TAKE 1 TABLET BY MOUTH EVERY 6 HOURS NEEDED FOR PAIN 01/04 completed Not Available Not Available Not Available tamsulosin 0.4 mg capsule TAKE 1 CAPSULE BY MOUTH DAILY 01/04 completed Not Available Not Available Not Available doxycycline monohydrate 100 mg capsule Take 1 capsule twice a day by oral route for 7 days. 2021 active Not Available Not Available Not Avai lable montelukast 10 mg tablet TAKE 1 TABLET BY MOUTH DAILY 01/04 completed Not Available Not Available Not Available azelastine 137 mcg (0.1 %) nasal spray USE 1 SPRAY IN EACH NOSTRIL EVERY 12 HOURS 01/04 completed Not Available Not Available Not Available methylpredn isolone 4 mg tablets in a dose pack FOLLOW PACKAGE DIRECTION S 01/04 completed Not Available Not Available Not Available ondansetron 4 mg disintegrat ing tablet DISSOLVE 1 TABLET ON THE TONGUE EVERY 8 HOURS NEEDED FOR NAUSEA OR VOMITING 01/04 completed Not Available Not Available Not Available olmesartan 20 mg tablet TAKE 1 TABLET BY MOUTH DAILY active Not Available Not Available No t Available rosuvastati n 5 mg tablet TAKE 1 TABLET BY MOUTH DAILY active Not Available Not Available No t Available OneTouch Verio test strips TEST THREE TIMES DAILY 01/04 completed Not Available Not Available Not Available ID NOW COVID-19 Test Kit TEST DIRECTED TODAY 01/04 completed Not Available Not Available Not Available Vitals Date Recorded Body temperature Respiratory rate Oxygen saturation Oxygen saturation in Arterial blood by Pulse oximetry Heart rate Systolic And Diastolic Provider Name and Address Organization Details Last Updated DateTime 98.7 [degF] 16 /min 98 % 98 % 94 /min 125/75 mm[Hg] Jo BAGLEY - .[facility] 09:58:27 Social History Question Answer Notes LastModified by Organizat ion Details LastModified Time Tobacco Smoking Status Never Smoker KEVYN Hennessy - .[facility] 01/04/2022 09:59:38 RISK LEVEL - Segmentation Level 2 - Chronic Dx/primary Care Treatable [id number] Information not available 02/16/2022 Sex: Unknown Functional Status None recorded. Mental Status None recorded. Family History Relationship Description Onset Age of this Age Resolved Age Notes LastModified by Organization Details LastModified Time Father No current problems or disability [email or web address] Not available 12/08 09:59:35 Mother No current problems or disability Not available 12/08 09:59:35 Medical History No medical history recorded. Past Encounters Encounter ID Performer Location Encounter Start Date Encounter Closed Date Diagnosis/Indication Diagnosis SNOMED-CT Code Diagnosis ICD10 Code Diagnosis Note [id number] Tye VELASCOY_ [place] [address] [place] [address] 01/04/2022 09:25:22 01/04/2022 10:17:33 Cough 41470456 R05.9 Acute pharyngitis 491464 003 J02.9 Health Concerns Section Related Observation LastModified by Organization Detai ls LastModified Time None Recorded Concern Status LastModified by Organization Details LastModified Time None Recorded Advance Directives Directive None Recorded Payers Insurance Date Sequence Insurance Name Policy Number Policy Quinn Covered Member ID Quinn Member ID Guarantor Name 01/08/2022 1 [facility] (MEDICARE REPLACEMENT/A DVANTAGE - PPO) [place] [id number] [place]
--- OUTSIDE RECORDS SUMMARY | 2024-11-02 13:39 | XMS_ITS | Clinical Summary ---
Author Organization [facility] Address [address] [place] [id number] Care Team Providers Care Labor Gang Supervisor Name Role Phone Raymond Dickens MD Primary Care Provider Allergies No known active allergies Medications aspirin 81 mg enteric coated tablet Take by mouth 10/02/2011 Active olmesartan (BENICAR) 20 mg tablet Take 20 mg by mouth daily 12/13/2020 Active omeprazole (PriLOSEC) 40 mg capsule Take 40 mg by mouth daily 12/13/2020 Active rosuvastatin (CRESTOR) 5 mg tablet Take 5 mg by mouth daily 10/21/2020 Active Active Problems Problem Noted Date Diagnosed Date Other chest pain 12/26/2020 Dyspnea on exertion 12/26/2020 Hypertension Hyperlipidemia Surgical History Surgery Date Site/Laterality Comments HEMORRHOID SURGERY NASAL SEPTUM SURGERY CARPAL TUNNEL RELEASE Medical History Medical History Date Comments Diabetes mellitus (HCC) GERD (gastroesophageal reflux disease) Hyperlipidemia Hypertension Family History Medical History Relation Name Comments Heart failure Brother 1 No Known Problems Brother 2 Heart disease Father Heart failure Father Malignant neoplasm Mother No Known Problems Sister Relation Name Status Comments Brother 1 (Age 66) Brother 2 Alive Father (Age 64) Mother (Age 72) Sister Alive Social History Tobacco Use Types Packs/Day Years Used Date Smoking Tobacco: Former Cigarettes Cigars Smokeless Tobacco: Never Tobacco Cessation:Counseling Given: Not Answered Personal Safety Answer Date Recorded Getting School Help Needed Not on file 06/02 Sex and Gender Information Value Date Recorded Sex Assigned at Not on file Legal Sex Male 9:20 PM CLOTH DYER Gender Identity Not on file Sexual Orientation Not on file Obstetrics History Last Filed Vital Signs Vital Sign Reading Time Taken Comments Blood Pressure 108/60 04/16/2022 10:08 AM CLOTH DYER Pulse 105 04/16/2022 10:08 AM CLOTH DYER Temperature - - Respiratory Rate - - Oxygen Saturation 97% 04/16/2022 10:08 AM CLOTH DYER Inhaled Oxygen Concentration - - Weight 98 kg (216 lb) 04/16/2022 10:08 AM CLOTH DYER Height 182.9 cm (6') 04/16/2022 10:08 AM CLOTH DYER Body Mass Index 29.29 04/16/2022 10:08 AM CLOTH DYER Plan of Treatment Health Maintenance Due Date Last Done Comments Depression Screening 1945 Fall Risk Assessment 1945 Hepatitis B Screening 01/12/1962 Zoster Vaccine (1 of 2) 01/12/1994 Well Visit 65+ 01/12/2009 Pneumococcal vaccine 65+ (2 of 2 - PPSV23) 09/18/2017 09/18/2016, 02/27/2016 Covid-19 Vaccine (3 - 2023-2 5 season) 2023 06/21/2020, 05/31/2020 Influenza Vaccine (#1) 2024 , 01/06/2020, 01/06/2019, Additional history exists DTaP/Tdap/Td Vaccine (3 - Td or Tdap) 10/03/2025 10/04/2015, 10/02/2015 [place] [address] [facility] MEDICARE ADVANTAGE [employer] MEDICARE Care Teams Labor Gang Supervisor Relationship Specialty Start Date End Date Raymond Dickens MD [address] [facility] [address] [place] [address] PCP - General Family Medicine 12/07/20
--- OUTSIDE RECORDS SUMMARY | 2024-11-02 13:39 | XMS_ITS | Referral Summary ---
Author Organization [facility] Address [address] [place] [phone] Care Team Providers Care Application Technician Name Role Phone Raymond Dickens MD Primary [...] 12/26/2020 Dyspnea on exertion 12/26/2020 Hypertension Hyperlipidemia Social History Tobacco Use Types Packs/Day Years Used Date Smoking Tobacco: Former Cigarettes Cigars Smokeless Tobacco: Never Tobacco Cessation:Counseling Given: Not Answered Personal Safety Answer Date Recorded Getting School Help Needed Not on file 06/02 Sex and Gender Information Value Date Recorded Sex Assigned at Not on file Legal Sex Male 9: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 ENVELOPE FOLD OPERATOR Gender Identity Not on file Sexual Orientation Not on file Last Filed Vital Signs Vital Sign Reading Time Taken Comments Blood Pressure 108/60 04/16/2022 10:08 AM ENVELOPE FOLD OPERATOR Pulse 105 04/16/2022 10:08 AM ENVELOPE FOLD OPERATOR Temperature - - Respiratory Rate - - Oxygen Saturation 97% 04/16/2022 10:08 AM ENVELOPE FOLD OPERATOR Inhaled Oxygen Concentration - - Weight 98 kg (216 lb) 04/16/2022 10:08 AM ENVELOPE FOLD OPERATOR Height 182.9 cm (6') 04/16/2022 10:08 AM ENVELOPE FOLD OPERATOR Body Mass Index 29.29 04/16/2022 10:08 AM ENVELOPE FOLD OPERATOR Plan of Treatment Not on file Insurance U[employer] MEDICARE ADVANTAGE [facility] MEDICARE Care Teams Application Technician Relationship Specialty Start Date End Date Raymond Dickens MD [address] [facility] [address] [place] [address] PCP - General Family Medicine 12/07/20
--- OUTSIDE RECORDS SUMMARY | 2024-11-02 13:39 | XMS_ITS | Clinical Summary ---
Author Organization [facility] Address [address] [place] [id number] Care Team Providers Care Dry Lumber Grader Name Role Phone Unavailable Primary Care Provider Unavailabl e Social History Tobacco Use Types Packs/Day Years Used Date Smoking Tobacco: Never Assessed Sex and Gender Information Value Date Recorded Sex Assigned at Not on file Legal Sex Male 7:55 PM CDT Gender Identity Not on file Sexual Orientation Not on file Plan of Treatment Health Maintenance Due Date Last Done Comments DTaP, Tdap and Td Vaccines ( 1 - Tdap) 01/12/1963 Pneumococcal Vaccine: 50+ Ye ars (1 of 1 - PCV) 01/12/1994 Zoster Vaccines (1 of 2) 01/12/1994 RSV Immunization or 60+ Years (1 - 1-dose 75+ series) 01/12/2019 COVID-19 Vaccine ( - 2023-2 5 season) 2023 Meningococcal B Vaccine Aged Out No l onger eligible based on patient's age to complete this topic Meningococcal Vaccine Aged Out No bibiana nataliia eligible based on patient's age to complete this topic RSV Immunizations Under 20 Months Aged Out No longer eligible based on patient's age to complete this topic
== END 2024-11-02 13:34 | disposition home or self-care (01) ==
PROVIDERS: PCP Family Medicine
DX: R05.9 Cough, unspecified (principal)
CPT/HCPCS: 71046